=== PATIENT | male | born 1970 | race Caucasian/White ===

== ENCOUNTER 2017-02-03 09:33 | Emergency (ER) | payer OTHER ==
[~2017-02-03] VITALS: Ht 180.3 cm; Wt 135.0 kg
[~2017-02-03 09:33] MED LIST: HYDR-4003 PO
[2017-02-03 09:37] VITALS: BP 150/93; PULSE 94; RESP 18; O2SAT 97
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
[2017-02-03] MEDS ORDERED: 0.9% Sodium Chloride 1,000 ML IV ONE (09:43)
[2017-02-03] MEDS ORDERED: CeFAZolin Inj 2 GM in IV Premix 1 EACH IV ONE (09:45)
[2017-02-03] MEDS ORDERED: TdaP Vaccine 0.5 mL Inj IM ONE (09:45)
[2017-02-03] MEDS: HYDROmorphone 0.5 mg/0.5 mL iSecure Syringe IVPUSH PRN ×2 (10:17→10:37)
[2017-02-03 10:25] VITALS: BP_SYST 13; BP_SYST 130; BP_DIAS 87; PULSE 95; RESP 16; O2SAT 97
[2017-02-03 10:32] LABS: APPEARANCE,URINE CLEAR (CLEAR,HAZY); COLOR,URINE YELLOW (YELLOW); OCCULT BLOOD,URINE MODERATE (NEGATIVE); UROBILINOGEN,URINE NORMAL (NORMAL)
[2017-02-03 10:39] VITALS: BP_SYST 13; BP_SYST 130; BP_DIAS 87; PULSE 95; RESP 16; O2SAT 97
[2017-02-03 10:41] LABS: BASOPHILS % (AUTO) 0.4 % (0-3); EOSINOPHILS % (AUTO) 0.3 % (0-5); MONOCYTES % (AUTO) 7.7 % (4-12); Mean Corpuscular Hemoglobin 29.4 pg (27.0-35.0); Mean Corpuscular Volume 84.7 fL (81-100); NEUTROPHILS % (AUTO) 75.9 % (40-74); Platelet Count 261 bil/L (150-400)
[2017-02-03 10:52] LABS: INR 0.94 ratio
== END 2017-02-03 10:44 | disposition short-term general hospital (02) ==
LOC: SED 09:33
DX: T21.26XA Burn of second degree of male genital region, initial encounter (principal); W39.XXXA Discharge of firework, initial encounter; Y93.89 Activity, other specified; Y99.8 Other external cause status; Y92.89 Other specified places as the place of occurrence of the external cause; I10 Essential (primary) hypertension; G47.33 Obstructive sleep apnea (adult) (pediatric); Z23 Encounter for immunization; Z95.828 Presence of other vascular implants and grafts; Z87.828 Personal history of other (healed) physical injury and trauma; Z79.82 Long term (current) use of aspirin; Z88.0 Allergy status to penicillin
CPT/HCPCS: 36415; 80053; 81001; 85025; 85610; 90471; 90715; 96365; 96375; 99291; 99292; G0480; J0690; J1170; J7030